=== PATIENT | female | born 1995 | race Caucasian/White ===

== ENCOUNTER 2016-07-16 22:50 | Emergency (ER) | payer SELFPAY ==
--- NOTE | 2016-07-16 23:59 | ED ORDER SUMMARY ---
..... Patient: CHRISTINA RAM OrderSheet [facility] VisitID: [id number] [address] [place] [address] 20y, F Registration Date/Time: 07/16/2016 ORDER SHEET Weight: 52.1 kg Allergies: No Known Drug Allergy GENERAL ORDERS: MEDICATION ORDERS: IV FLUIDS: Zofran IV 8 mg (NOW) (23:10 07/16/2016 Fiona MASON) (23:14 EInderbitzen R.N.) Haldol IV 5 mg (HIGH ALERT MEDICATION, NOW) (23:11 07/16/2016 Fiona MASON) (23:15 EIndertiti R.N.) ORDER SHEET NOTES: [Electronically signed by Dunia Thakkar MD (21:59 07/18/2016)] [Electronically signed by Niko Abel R.N. (00:58 07/21/2016)] [Electronically locked/signed by Niko Abel R.N. (00:58 07/21/2016)]
--- NOTE | 2016-07-16 23:59 | ED CLINICAL REPORT ---
Clinical Report - Physicians/Mid Levels [facility] [address] [place] [address] 07/16/2016 22:52 Patient: CHRISTINA RAM Time Seen: 23:03. Arrived- By private vehicle. Historian- patient. HISTORY OF PRESENT ILLNESS Chief Complaint: VOMITING. "panic attack". This started just prior to arrival and is still present. No recent travel. She has had nausea and vomiting. No diarrhea, black stools, bloody stools, abdominal pain or constipation. No flank pain, known contact with a sick individual or change in routine. Has not recently been camping or on antibiotics. Possible bad food exposure (Pt ate something with shrimp in it, but states she is not allergic.). The illness is described as moderate. (Pt denies any rash, itching, or throat swelling.). Similar symptoms previously: Recent medical care: Not recently seen/assessed. REVIEW OF SYSTEMS No fever, muscle aches, difficulty with urination, dark urine or headache. No dizziness, sore throat, cough, chest pain or difficulty breathing. No excessive urination, skin rash, jaundice, back pain or fainting episodes. No blurred vision. Denies current . All systems otherwise negative, except as recorded above. PAST HISTORY Problems: no known problems. Additional Surgeries: no known surgeries. Medications: None. Allergies: No Known Drug Allergy. SOCIAL HISTORY Never smoker. Alcohol use. No drug use. ADDITIONAL NOTES The nursing notes have been reviewed. PHYSICAL EXAM Vital Signs: 07/16/2016 22:55 BP: 112/88. HR: 132. RR: 70. O2 saturation: 99%. Have been reviewed. Appearance: Alert. Patient in moderate distress. Distress appears due to anxiety. (Pt is hyperventilating and retching.). Eyes: Pupils equal, round and reactive to light. Eyes normal inspection. ENT: Nose normal. Neck: Normal inspection. CVS: Normal heart rate and rhythm. Heart sounds normal. Pulses normal. Respiratory: No respiratory distress. Breath sounds normal. Abdomen: Soft. Back: Normal inspection. No CVA tenderness. Skin: Skin warm. Normal skin color. No rash. Normal skin turgor. Slight diaphoresis. Extremities: Extremities exhibit normal ROM. No lower extremity edema. Neuro: No motor deficit. (Grossly intact.). LABS, X-RAYS, AND EKG Pulse Oximetry: 07/16/2016 22:55 O2 saturation: 99%. (FIO2 - room air). Interpretation: normal. PROGRESS AND PROCEDURES Course of Care: Pt was given IV Zofran and Haldol, with rapid improvement in sx. She was calm and improved on re-evaluation, with complete resolution of nausea. No emergent condition identified. Patient counseled in person regarding the patient's stable condition, diagnosis and need for follow-up. Concerns were addressed. Old medical records reviewed. Disposition: Discharged. Condition: stable and improved. CLINICAL IMPRESSION Vomiting with nausea. Panic attack INSTRUCTIONS Drink plenty of fluids. Warnings: SEDATIVE MEDICATION: You were given sedative medication during your visit. Do not drive or operate dangerous machinery for 6 hours. GENERAL WARNINGS: Return or contact your physician immediately if your condition worsens or changes unexpectedly, if not improving as expected, or if other problems arise. Prescription Medications: Zofran (orally disintegrating tablets) 4 mg: take 1-2 orally every 6 hours as needed for nausea. Dispense five (5). No refill. Substitution is permissible. Follow-up: Follow up with doctor as needed. Understanding of the discharge instructions verbalized by patient. (Electronically signed by Dunia Thakkar MD 07/18/2016 21:59)
--- NOTE | 2016-07-16 23:59 | ED NURSING NOTES ---
Clinical Report - Nurses [facility] [address] [place] [address] 07/16/2016 22:52 Patient: CHRISTINA RAM TRIAGE Triage time 22:55 Jul 16 2016. Acuity: LEVEL 3. Chief Complaint: (vomiting , panic attack). 22:55 07/16/16. --23:01 Suzi Chopra R.N. 22:55 07/16/16. BP: 112/88. HR: 132. RR: 70. O2 saturation: 99%. --23:01 Suzi Chopra R.N. CRISTINA COMA SCORE: [place] Coma Scale: 15- eyes open spontaneously (4); best verbal response- oriented x 4 (5); best motor response- obeys commands (6). --23:02 Suzi Chopra R.N. Weight: 52.1 kg. Height/Length: 65 inches. BMI: 19.1. --22:54 Suzi Chopra R.N. Medications None. --22:57 Suzi Chopra R.N. Medication/allergy information source: the patient. --23:01 Suzi Chopra R.N. Allergies No Known Drug Allergy. --22:57 Suzi Chopra R.N. History Arrived by private vehicle. Historian: patient. This started just prior to arrival. No fever, weakness, cough, difficulty breathing or skin rash. Denies muscle aches. 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 PAST MEDICAL HX: Last normal menstrual period- 6 days ago. SOCIAL HX: Never smoker. Alcohol use. (drank 2 beers today). No drug use. No infectious disease exposure. SELF HARM ASSESSMENT: A self harm assessment was performed. The patient answered "no" to the question "Have you recently felt down, depressed, or hopeless?", "Have you noticed less interest or pleasure in doing things?", "Do you have thoughts of harming or killing yourself?", "Are you here because you tried to hurt yourself?", "Have you ever tried to hurt yourself before today?", "Have you recently had thoughts about harming or killing others?" and "Do you have any dangerous items in your possession?". NUTRITIONAL RISK ASSESSMENT: The nutritional risk assessment revealed no deficiencies. FUNCTIONAL ASSESSMENT: Functional assessment: no impairments noted. LEARNING NEEDS ASSESSMENT: The learning needs assessment revealed no barriers. SKIN INTEGRITY ASSESSMENT: Skin integrity risk assessment completed. No skin integrity risk identified. --23:01 Suzi Chopra R.N. PROBLEMS: no known problems. ADDITIONAL SURGERIES: no known surgeries. Interventions ID band on patient. --23:01 Suzi Chopra R.N. PHYSICAL ASSESSMENT 23:06 07/16/16. To room via wheelchair. ( tingling in hands). GENERAL / NEURO / PSYCH: Alert. Oriented X 4. HEENT: Pupils equal, round and reactive to light. No facial asymmetry noted. No facial weakness. ( facial paresthesia). Mucous membranes are pink. RESPIRATORY: Breath sounds within normal limits. CVS: Pulses within normal limits. GI / : Abdomen soft. SKIN: Skin is warm and dry. Normal skin turgor. --23:06 Suzi Chopra R.N. NURSING PROGRESS NOTES 23:00 07/16/16. The initial plan of care for this patient includes an assessment with efforts to address the patient's anxiety. This plan of care was discussed with the patient. Patient gowned. Reassurance given. Two patient identifiers checked. Side rails up x 2. Bed placed in lowest position. Brakes of bed on. Patient ready for evaluation. ( Dr Thakkar in during end of triage). --23:22 Suzi Chopra R.N. 23:06 07/16/2016 Site #1 started via IV in the left hand with an 18g angiocath, with aseptic technique and good blood return; one attempt. Blood drawn: rainbow set. Labeled in the presence of the patient and sent to the lab. Saline lock flushed with 10 mL saline. --23:06 Suzi Chopra R.N. 23:10 07/16/2016 Zofran (Ondansetron HCl) IVP 8 mg given over 1 minute(s) via site #1. Allergies verified and confirmed 5 rights. IV patency established. IV site checked: no pain, redness, or swelling. IV flushed thoroughly pre- and post-medication administration. IVP given by RN. --23:14 Suzi Chopra R.N. 23:12 07/16/2016 HALDOL (Haloperidol Lactate) IVP 5 mg given over 2 minute(s) via site #1. Allergies verified, confirmed 5 rights and sedative warning given to the patient. IV patency established. IV site checked: no pain, redness, or swelling. IV flushed thoroughly pre- and post-medication administration. IVP given by RN. --23:15 Suzi Chopra R.N. 23:15 07/16/16. Pulse oximeter placed on patient; monitor alarms on. --23:23 Suzi Chopra R.N. 23:24 07/16/16. --23:24 Suzi Chopra R.N. 23:23 07/16/16. RR: 16. O2 saturation: 98% on room air. --23:24 Suzi Chopra R.N. 23:50 07/16/16. Overall patient status is improved. RESPIRATORY: No respiratory distress. Breath sounds normal. SKIN: Skin is warm and dry. Skin color within normal limits. --23:50 Suzi Chopra R.N. 23:50 07/16/16. BP: 107/61. HR: 84. RR: 16. O2 saturation: 97%. --23:50 Suzi Chopra R.N. 23:55 07/16/16. Care transferred and report given (to MAIDA Pope). --23:55 Suzi Chopra R.N. DISPOSITION / DISCHARGE Departure time: 0016. Discharge instructions provided and reviewed with the patient. Reviewed medication(s) side effects information. Prescription(s) given to the patient. Patient verbalized understanding. Written instructions provided in Mauritanian. The patient was discharged by the physician. She was discharged home. ( Pt ambulated on discharge steady on her feet, verbalized understanding of discharge instructions and follow up care.). --00:20 Niko Abel R.N. 00:18 07/17/16. BP: 101/48. HR: 92. RR: 18. O2 saturation: 100%. Temp: 98.2 F. Pain level now 0/10. --00:20 Niko Abel R.N. Locked/Released at 07/21/2016 0:58 by Niko Abel R.N.
--- NOTE | 2016-07-16 23:59 | ED ORDER SUMMARY ---
..... Patient: CHRISTINA RAM OrderSheet [facility] VisitID: [id number] [address] [place] [address] 20y, F Registration Date/Time: 07/16/2016 ORDER SHEET Weight: 52.1 kg Allergies: No Known Drug Allergy GENERAL ORDERS: MEDICATION ORDERS: IV FLUIDS: Zofran IV 8 mg (NOW) (23:10 07/16/2016 Fiona MASON) (23:14 EInderbitzen R.N.) Haldol IV 5 mg (HIGH ALERT MEDICATION, NOW) (23:11 07/16/2016 Fiona MASON) (23:15 EIndertiti R.N.) ORDER SHEET NOTES: [Electronically signed by Dunia Thakkar MD (21:59 07/18/2016)] [Electronically signed by Niko Abel R.N. (00:58 07/21/2016)] [Electronically locked/signed by Niko Abel R.N. (00:58 07/21/2016)]
--- NOTE | 2016-07-21 00:58 | ED DISCHARGE INSTRUCTIONS ---
Patient: CHRISTINA RAM General Instructions [facility] VisitID: [id number] [address] [place] [address] 20y, F Registration Date/Time: 07/16/2016 Vomiting with nausea. Panic attack INSTRUCTIONS Drink plenty of fluids. Warnings: SEDATIVE MEDICATION: You were given sedative medication during your visit. Do not drive or operate dangerous machinery for 6 hours. GENERAL WARNINGS: Return or contact your physician immediately if your condition worsens or changes unexpectedly, if not improving as expected, or if other problems arise. Prescription Medications: Zofran (orally disintegrating tablets) 4 mg: take 1-2 orally every 6 hours as needed for nausea. Dispense five (5). No refill. Substitution is permissible. Follow-up: Follow up with doctor as needed. Understanding of the discharge instructions verbalized by patient. ADDITIONAL INFORMATION Vomiting [6Yr-Adult] Vomiting is a common symptom that may be due to different causes. These include gastroenteritis ("stomach flu"), food poisoning and gastritis. There are other more serious causes of vomiting which may be hard to diagnose early in the illness. Therefore, it is important to watch for the warning signs listed below. The main danger from repeated vomiting is dehydration. This is due to excess loss of water and minerals from the body. When this occurs, body fluids must be replaced. Home Care: If symptoms are severe, rest at home for the next 24 hours. You may use acetaminophen (Tylenol) or ibuprofen (Motrin, Advil) to control fever, unless another medicine was prescribed. [NOTE : If you have chronic liver or kidney disease or ever had a stomach ulcer or GI bleeding, talk with your doctor before using these medicines.] (Aspirin should never be used in anyone under 18 years of age who is ill with a fever. It may cause severe liver damage.) Avoid tobacco and alcohol use, which may worsen your symptoms. If medicines for vomiting were prescribed, take as directed. Once vomiting stops, then follow these guidelines: During The First 12-24 Hours follow the diet below: FRUIT JUICES: Apple, grape juice, clear fruit drinks, and electrolyte replacement drinks. BEVERAGES: Soft drinks without caffeine; mineral water (plain or flavored), decaffeinated tea and coffee. SOUPS: Clear broth, consomm and bouillon DESSERTS: Plain gelatin, popsicles and fruit juice bars. As you feel better, you may add 6-8 ounces of yogurt per day. During The Next 24 Hours you may add the following to the above: Hot cereal, plain toast, bread, rolls, crackers Plain noodles, rice, mashed potatoes, chicken noodle or rice soup Unsweetened canned fruit (avoid pineapple), bananas Limit caffeine and chocolate. No spices or seasonings except salt. During The Next 24 Hours Gradually resume a normal diet, as you feel better and your symptoms lessen. Follow Up with your doctor as advised if you are not improving over the next 2-3 days. Get Prompt Medical Attention if any of the following occur: Constant right-sided lower abdominal pain or increasing general abdominal pain Continued vomiting (unable to keep liquids down) for 24 hours Frequent diarrhea (more than 5 times a day); blood (red or black color) or mucus in diarrhea Reduced urine output or extreme thirst Weakness, dizziness or fainting Unusually drowsy or confused Fever of 100.4F (38C) oral or higher, not better with fever medication Yellow color of the eyes or skin Panic Attack A panic attack is an extreme fear reaction that comes on for no apparent reason. Symptoms may include pounding or racing heartbeat, shortness of breath, dizziness, weakness and sweating. There is usually a fear that something terrible will happen or that you may . The attack may last a few minutes up to a few hours. Between attacks things will seem quite normal. This condition has a psychological cause and can be treated with the help of a therapist or psychiatrist. Medication is often used and can be very helpful for this problem. Home Care: Try to identify the sources of stress in your life. It may not be obvious! These may include: Daily hassles of life which pile up (traffic jams, missed appointments, car troubles, etc.). Major life changes, both good (new baby, job promotion) and bad (loss of job, loss of loved one). Overload: feeling that you have too many responsibilities and can't take care of everything at once. Helplessness: feeling like your problems are too much for you to handle. Notice how your body reacts to stress. Learn to listen to your body signals so that you can take action before the stress becomes severe. When possible, AVOID or REDUCE THE CAUSE OF STRESS. Avoid hassles, limit the amount of change that is happening in your life at one time or take a break when you feel overloaded. Unfortunately, many stressful situations cannot be avoided. Therefore, it is necessary to LEARN HOW TO MANAGE STRESS better. There are many proven methods that work and will reduce your anxiety. These include simple things like exercise, good nutrition and adequate rest. Also, there are certain techniques that are helpful: relaxation and breathing exercises, visualization, biofeedback, meditation or simply taking some time-out to clear your mind. For more information about this, consult your doctor or go to a local bookstore and review the many books and tapes available on this subject. Follow Up with your doctor or a therapist as advised. Get Prompt Medical Attention if any of the following occur: Worsening of your symptoms to the point of feeling [id number] A change in the type of pain: if it feels different, becomes more severe, lasts longer, or begins to spread into your shoulder, arm, neck, jaw or back Shortness of breath or increased pain with breathing Increasing feeling of weakness or dizziness Fainting Cough with dark colored sputum (phlegm) or blood Fever of 100.4F (38C) or higher, or as directed by your healthcare provider Swelling, pain or redness in one leg You have been given the following additional information: Vomiting (6Y-Adult) Panic Attack (Electronically signed by Dunia Thakkar MD 07/18/2016 21:59)
--- NOTE | 2016-07-21 00:58 | ED MED RECONCILIATION SUMMARY ---
Patient: CHRISTINA RAM Medication Reconciliation Report [facility] VisitID: [id number] [address] [place] [address] 20y, F Registration Date/Time: 07/16/2016 Weight: 52.1 kg Height/Length: 65 in. BMI: 19.1 ALLERGIES: No Known Drug Allergy The patient's Home Medications are listed below: NONE. The source(s) of the original Home Medication information: patient The following Medications were given to the patient in the Emergency Department: Zofran [IVP] IVP 8 mg, administered: 07/16/2016 11:10:00 PM HALDOL [IVP] IVP 5 mg, administered: 07/16/2016 11:12:00 PM The following Medications were prescribed to the patient: Zofran (orally disintegrating tablets) 4 mg: take 1-2 orally every 6 hours as needed for nausea. Dispense five (5). No refill. Substitution is permissible. -- Dunia Thakkar MD
--- NOTE | 2016-07-21 00:58 | ED MAR SUMMARY ---
..... Medication Administration Record Located Within [facility] [address] [place] [address] Patient: CHRISTINA RAM Visit ID: [id number] 20y, F Weight: 52.1 kg Height/Length: 65 in BMI: 19.1 ALLERGIES: No Known Drug Allergy Given 23:10 07/16/2016 Suzi Chopra R.N. Medication Administered: ZOFRAN [IVP] (ONDANSETRON HCL), Dose: 8 mg IVP over 1 minute(s), Site: #1 left hand. Medication Ordered: Zofran IV 8 mg (NOW). Given 23:12 07/16/2016 Suzi Chopra R.N. Medication Administered: HALDOL [IVP] (HALOPERIDOL LACTATE), Dose: 5 mg IVP over 2 minute(s), Site: #1 left hand. Medication Ordered: Haldol IV 5 mg (HIGH ALERT MEDICATION, NOW).
--- NOTE | 2016-07-21 00:58 | ED MAR SUMMARY ---
..... Medication Administration Record [facility] [address] [place] [address] Patient: CHRISTINA RAM Visit ID: [id number] 20y, F Weight: 52.1 kg Height/Length: 65 in BMI: 19.1 ALLERGIES: No Known Drug Allergy Given 23:10 07/16/2016 Suzi Chopra R.N. Medication Administered: ZOFRAN [IVP] (ONDANSETRON HCL), Dose: 8 mg IVP over 1 minute(s), Site: #1 left hand. Medication Ordered: Zofran IV 8 mg (NOW). Given 23:12 07/16/2016 Suzi Chopra R.N. Medication Administered: HALDOL [IVP] (HALOPERIDOL LACTATE), Dose: 5 mg IVP over 2 minute(s), Site: #1 left hand. Medication Ordered: Haldol IV 5 mg (HIGH ALERT MEDICATION, NOW).
--- NOTE | 2016-07-21 00:58 | ED MED RECONCILIATION SUMMARY ---
Patient: CHRISTINA RAM Medication Reconciliation Report [facility] VisitID: [id number] [address] [place] [address] 20y, F Registration Date/Time: 07/16/2016 Weight: 52.1 kg Height/Length: 65 in. BMI: 19.1 ALLERGIES: No Known Drug Allergy The patient's Home Medications are listed below: NONE. The source(s) of the original Home Medication information: patient The following Medications were given to the patient in the Emergency Department: Zofran [IVP] IVP 8 mg, administered: 07/16/2016 11:10:00 PM HALDOL [IVP] IVP 5 mg, administered: 07/16/2016 11:12:00 PM The following Medications were prescribed to the patient: Zofran (orally disintegrating tablets) 4 mg: take 1-2 orally every 6 hours as needed for nausea. Dispense five (5). No refill. Substitution is permissible. -- Dunia Thakkar MD
== END 2016-07-17 00:16 | disposition home or self-care (01) ==
LOC: ED SRH 22:50
DX: R11.2 Nausea with vomiting, unspecified (principal); F41.0 Panic disorder [episodic paroxysmal anxiety]